=== PATIENT | male | born 1990 | race Caucasian/White ===

== ENCOUNTER → 2018-03-30 | Outpatient (CLI) | payer BC ==
[2018-03-31 07:11] LABS: HIV SCREEN 4TH GENERATION WRFX Non Reactive (Non Reactive)
[2018-03-31 23:09] LABS: CHLAMYDIA TRACHOMATIS, NAA Negative (Negative); NEISSERIA GONORRHOEAE, NAA Negative (Negative)
== END | disposition home or self-care (01) ==
LOC: LAB EV 12:44 → LAB SHORT 12:44
PROVIDERS: Physician Assistant Surgical
DX: Z72.51 High risk heterosexual behavior (principal)
CPT/HCPCS: 86592; 87086; 87389; 87491; 87591

== ENCOUNTER 2019-12-15 13:03 | Emergency (ER) | payer OTHER, BC ==
[~2019-12-15] VITALS: Ht 182.9 cm; Wt 79.4 kg
[2019-12-15] MEDS ORDERED: CYCL10 PO (15:48)
[2019-12-15] MEDS ORDERED: Naprosyn500 MG PO (15:48)
== END 2019-12-15 15:52 | disposition home or self-care (01) ==
LOC: ER 13:03
DX: S39.012A Strain of muscle, fascia and tendon of lower back, initial encounter (principal); M62.830 Muscle spasm of back; Z79.899 Other long term (current) drug therapy; V49.40XA Driver injured in collision with unspecified motor vehicles in traffic accident, initial encounter; Y92.410 Unspecified street and highway as the place of occurrence of the external cause
CPT/HCPCS: 96372; 99283-25; J1885